=== PATIENT | female | born 1975 | race Hispanic/Latino ===

== ENCOUNTER 2024-10-15 13:04 | Emergency (ER) | payer BC, MEDICAID ==
[~2024-10-15] VITALS: Ht 149.9 cm; Wt 56.7 kg
[2024-10-15 13:27] LABS: HCG,QUALITATIVE URINE NEGATIVE (NEGATIVE)
[2024-10-15 13:29] LABS: IMMATURE GRANULOCYTE ABSOLUTE 0.03 K/uL (0-1); NUCLEATED RED BLOOD CELLS 0.0 % (0.0-0.19); PLATELET COUNT (AUTO) 221 K/uL (130-400); RED BLOOD CELL COUNT(AUTO) 4.67 MIL/uL (4.00-5.50); RED CELL DISTRIBUTION WIDTH 12.1 % (11.0-15.5); WHITE BLOOD COUNT (AUTO) 9.6 K/uL (4.8-10.8)
[2024-10-15 13:30] LABS: APPEARANCE,URINE CLEAR (CLEAR); GLUCOSE, URINE (UA) >=1000 mg/dL (NEGATIVE); LEUKOCYTE ESTERASE ,URINE 75 Leu/uL (NEGATIVE); NITRATE,URINE NEGATIVE (NEGATIVE); NON-SQUAMOUS EPITHELIAL CELL <1 /HPF (0-2); OCCULT BLOOD,URINE NEGATIVE (NEGATIVE); SQUAMOUS EPITHELIAL CELL,UR RARE /HPF (0-2)
[2024-10-15] MEDS: LIDOCAINE HCL 2% VISCOUS 15 ML UDCUP PO ONE (13:36)
[2024-10-15] MEDS: MAG/ALUM/SIMETH 30 ML UDCUP PO ONE (13:36)
[2024-10-15 13:46] LABS: ASPARTATE AMINOTRANSFERASE 10.0 U/L (10-37); CREATININE 0.6 mg/dL (0.5-1.0); GLOMERULAR FILTR. RATE CALC 109.0 mL/min (>90); SODIUM SERUM 134.0 mmol/L (136-145); TOTAL PROTEIN, SERUM 7.4 g/dL (6.0-8.3); UREA NITROGEN, BLOOD 10.0 mg/dL (7-18)
--- NOTE | 2024-10-15 13:49 | EKG ---
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
[2024-10-15 13:50] LABS: GLUCOSE,RANDOM 405.0 mg/dL (70-105)
--- NOTE | 2024-10-15 14:13 | ERN ---
General Chief Complaint: Abdominal Pain Stated Complaint: ABD PAIN/NAUSEA Time Seen by MD: 13:06 Time Seen by Midlevel: 13:06 Source: patient History of Present Illness Initial Comments 49-year-old female who presents to the emergency department due to abdominal pain onset three days. Patient reports nausea after eating but denies any vomiting, diarrhea, fever or further associated symptoms. Patient reports she is a diabetic patient noncompliant does not follow up with PCP and does not take any medications. Allergies: Coded Allergies: morphine (Unverified Allergy, Unknown, 10/15/24) Home Meds Active Scripts Cephalexin (Cephalexin) 500 Mg Tablet, 1 TAB PO BID for 7 Days, #14 TAB 0 Refills Prov:MELISA GRANADOS 10/15/24 Past Medical History Past Medical History: Diabetes-Type II Past Surgical History: Appendectomy, Hysterectomy, None Surgical History Other: UMBILICAL HERNIA, ROS Dictation Constitutional: Negative for fever,chills, and weight loss Eyes: Negative for injury, pain,redness, and discharge ENT: Negative for injury,pain or swelling Cardiovascular: Negative for chest pain, palpitations, and edema Respiratory: Negative for shortness of breath, cough, and wheezing, Abdomen/GI: Positive for abdominal pain, nausea Negative for vomiting, diarrhea, and constipation Back: Negative for injury and pain : Negative for painful urination, bleeding or discharge MS/Extremity: Negative for injury and deformity Skin: Negative for rash, and discoloration Neuro: Negative for headache, weakness, numbness, tingling, and seizure Psych: Negative for suicide ideation, homicidal ideation, and hallucinations Physical Exam Physical Exam Dictation General: awake, alert, no acute distress Head/Face: Normocephalic, atraumatic Eyes: PERRL, EOMI, normal conjunctiva ENT: oral cavity clear, oral mucosa moist Neck: Supple, normal range of motion Cardiovascular: RRR, normal S1/S2 Respiratory: CTAB, no respiratory distress, no rales or wheezes Abdomen: Soft, right upper quadrant and epigastric tenderness, non-distended, no guarding or rebound. Skin: Warm, dry, normal turgor, no rash MS/Extremity: Pulses equal, no cyanosis, neurovascular intact, FROM Neuro: COAx4, GCS 15, strength 5/5, CN 2-12 intact, normal cerebellar exam, normal gait Psych: Normal behavior, mood, and affect normal Results Laboratory and Microbiology Lab and Micro Result Laboratory Tests Test 10/15/24 13:15 10/15/24 13:20 10/15/24 13:22 10/15/24 14:24 Urine Color LIGHT-YELLOW (YELLOW) Urine Appearance CLEAR (CLEAR) Urine pH 7.0 (5.0-8.0) Urine Specific [place] 1.021 (1.001-1.031) Urine Protein 100 mg/dL (NEGATIVE) H Urine Glucose (UA) >=1000 mg/dL (NEGATIVE) H Urine Ketones NEGATIVE mg/dL (NEGATIVE) Urine Occult Blood NEGATIVE (NEGATIVE) Urine Nitrate NEGATIVE (NEGATIVE) Urine Bilirubin NEGATIVE mg/dL (NEGATIVE) Urine Urobilinogen 0.2 mg/dL (0.2-1.0) Urine Leukocyte Esterase 75 Moses/uL (NEGATIVE) H Urine RBC 2-5 /HPF (0-1) H Urine WBC 51-100 /HPF (0-1) H Urine Squamous Epithelial Cells RARE /HPF (0-2) Urine Non-Squamous Epithelial Cells <1 /HPF (0-2) Urine Bacteria Few /HPF (None Seen) Urine Hyaline Casts 2-5 /LPF (0-1 /LPF) H Urine HCG, Qualitative NEGATIVE (NEGATIVE) White Blood Count 9.6 K/uL (4.8-10.8) Red Blood Count 4.67 MIL/uL (4.00-5.50) Hemoglobin 14.6 g/dL (12.0-16.0) Hematocrit 41.7 % (36-48) Mean Corpuscular Volume 89.3 fL (79-99) Mean Corpuscular Hemoglobin 31.3 pg (27.0-33.0) Mean Corpuscular Hemoglobin Concent 35.0 g/dL (32.0-36.0) Red Cell Distribution Width 12.1 % (11.0-15.5) Platelet Count 221 K/uL (130-400) Mean Platelet Volume 10.3 fL (7.5-10.5) Immature Granulocyte % (Auto) 0.3 % (0-1) Neutrophils (%) (Auto) 73.8 % (40.0-77.0) Lymphocytes (%) (Auto) 20.2 % (21.0-51.0) L Monocytes (%) (Auto) 4.5 % (3.0-13.0) Eosinophils (%) (Auto) 0.8 % (0.0-8.0) Basophils (%) (Auto) 0.4 % (0.0-5.0) Neutrophils # (Auto) 7.0 K/uL (1.8-7.7) Lymphocytes # (Auto) 1.9 K/uL (1.0-4.8) Monocytes # (Auto) 0.4 K/uL (0.1-1.0) Eosinophils # (Auto) 0.08 K/uL (0.00-0.70) Basophils # (Auto) 0.04 K/uL (0.00-0.20) Absolute Immature Granulocyte (auto 0.03 K/uL (0-1) Nucleated Red Blood Cells 0.0 % (0.0-0.19) Sodium Level 134 mmol/L (136-145) L Potassium Level 3.7 mmol/L (3.5-5.1) Chloride Level 99 mmol/L (101-111) L Carbon Dioxide Level 31 mmol/L (21-32) Blood Urea Nitrogen 10 mg/dL (7-18) Creatinine 0.6 mg/dL (0.5-1.0) Glomerular Filtration Rate Calc 109 mL/min (>90) Random Glucose 405 mg/dL (70-105) *H Total Calcium 9.2 mg/dL (8.5-10.1) Total Bilirubin 0.8 mg/dL (0.2-1.0) Direct Bilirubin 0.1 mg/dL (0.0-0.3) Aspartate Amino Transf (AST/SGOT) 10 U/L (10-37) Alanine Aminotransferase (ALT/SGPT) 20 U/L (12-78) Alkaline Phosphatase 125 U/L (50-136) Total Protein 7.4 g/dL (6.0-8.3) Albumin 3.3 g/dL (3.5-5.0) L Lipase 166 U/L (16-77) H Troponin I High Sensitivity 7 ng/L (4-50) Whole Blood Ketones Quantitative 0.3 mmol/L (0.0-0.6) Test 10/15/24 15:11 10/15/24 16:19 Whole Blood Glucose 242 MG/DL (70-110) H 98 MG/DL (70-110) # Labs Reviewed?: Yes MDM MDM: Differential diagnosis: Rationale: 49-year-old female who presents to the emergency department due to abdominal pain onset three days. Patient reports nausea after eating but denies any vomiting, diarrhea, fever or further associated symptoms. Patient reports she is a diabetic patient noncompliant does not follow up with PCP and does not take any medications. Labs obtained CBC is nonspecific. Chemistry indicates hyponatremia 134, hypochloremia 99, random glucose of 405, lipase 166. Ketones 0.3, and negative ketones in the urine. No indication of patient being in DKA. IV fluids and insulin were administered repeat glucose was 242. UA indicates a urinary tract infection for which patient received Rocephin in the ED. Patient received GI cocktail and dicyclomine in the ED for abdominal pain. Patient was educated on findings and diagnosis. Admission was offered to the patient, however she refused and stated she wanted to be discharge. Advised to follow up with PCP. Antibiotics prescribed for outpatient treatment. Return to the emergency department for any worsening symptoms. Patient verbalized understanding. Patient stable for discharge. There are no social concerns with this patient. I independently interpreted the test that were performed, results were reviewed by me and considered findings on radiology if ordered. Medical management and examination interpretation discussions were had by me with other qualified healthcare professionals as indicated for the patient's care. ED Course Orders Procedure Category Date Status Time Cbc With Differential LAB 10/15/24 Complete 13:14 Basic Metabolic Panel LAB 10/15/24 Complete 13:14 Lipase LAB 10/15/24 Complete 13:14 Hepatic Function Panel LAB 10/15/24 Complete 13:14 Urinalysis LAB 10/15/24 Complete W/Microscopic 13:14 ,Urine Test LAB 10/15/24 Complete 13:14 Mag/Alum/Simeth 30ml PHA 10/15/24 Complete (Maalox Plus 30ml) 13:30 Lidocaine Hcl 2% PHA 10/15/24 Complete Viscous (Lidocaine Hcl 13:30 Pantoprazole 40mg Tab PHA 10/15/24 Complete (Protonix 40mg Tab 13:30 Us Abdominal Ruq\Ltd US 10/15/24 Resulted 13:22 Troponin I High LAB 10/15/24 Complete Sensitivity 13:22 12 Lead Ekg Tracing- EKG 10/15/24 Complete Technical 13:22 Culture Urine NIYA 10/15/24 Complete 13:43 Ketone Blood LAB 10/15/24 Complete Quantitative 14:02 0.9%Nacl 1000ml (Ns PHA 10/15/24 Complete 1000ml) 14:30 Insulin Regular, PHA 10/15/24 Complete Human 3ml (Humulin R 15:00 Ceftriaxone 1g Vial PHA 10/15/24 Complete (Rocephine 1g Inj) 15:00 Bedside Glucose CPOE 10/15/24 Transmitted Fingerstick 16:14 Dicyclomine Hcl PHA 10/15/24 Complete (Bentyl 20mg Tab) 17:00 Current Medications Medications (Trade) Dose Ordered Sig/[place] Route PRN Reason Start Time Stop Time Status Last Admin Dose Admin Al Hydroxide/Mg Hydroxide (MAALox PLUS 30ML) 30 ml ONCE ONCE PO 10/15/24 13:30 10/15/24 13:31 DC 10/15/24 13:36 Ceftriaxone Sodium (ROCEphine 1G INJ) 1 gm ONCE ONCE IVPB 10/15/24 15:00 10/15/24 15:01 DC 10/15/24 15:15 Dicyclomine HCl (Bentyl 20mg Tab) 20 mg ONCE ONCE PO 10/15/24 17:00 10/15/24 17:01 DC 10/15/24 16:59 Insulin Human Regular (humuLIN R 100 UNIT/ML 3ML) 10 unit ONCE ONCE SQ 10/15/24 15:00 10/15/24 15:01 DC 10/15/24 15:20 Lidocaine HCl (Lidocaine HCl 2% Viscous) 10 ml ONCE ONCE PO 10/15/24 13:30 10/15/24 13:31 DC 10/15/24 13:36 Pantoprazole Sodium (PROTonix 40MG TAB) 40 mg ONCE ONCE PO 10/15/24 13:30 10/15/24 13:31 DC 10/15/24 13:36 Sodium Chloride 1,000 ml @ 0 mls/hr ONCE ONCE IV 10/15/24 14:30 10/15/24 14:31 DC 10/15/24 14:33 Vital Signs Date Time Temp Pulse Resp B/P (MAP) Pulse Ox O2 Delivery O2 Flow Rate FiO2 10/15/24 16:36 98.2 64 16 155/90 98 Room Air* 0 10/15/24 13:30 98.2 60 16 180/82 98 Room Air* 0 10/15/24 13:08 98.6 65 18 183/85 99 0 DX & DISP Disposition: Discharge Departure Impression: Primary Impression: UTI (urinary tract infection) Condition: Stable Scripts Cephalexin (Cephalexin) 500 Mg Tablet 1 TAB PO BID for 7 Days, #14 TAB 0 Refills Prov: MELISA GRANADOS 10/15/24 Additional Instructions: Discharge home. Rest. Follow up with primary care [facility] in 24 hours. Return to the ER for any acute changes or worsening symptoms. If any medications were prescribed take as directed. Okay to continue home medications unless otherwise discussed during your visit in the emergency room today. Patient was also advised to follow-up with primary care physician in 1 to 2 days for continued monitoring. Referrals: CANDY SNOWDEN MD (PCP) I performed the substantive portion of the visit. I have reviewed and personally made and approve the management plan that is documented in the notes by myself or the ASHLY. I acknowledge full responsibility for the patient's management plan. MELISA GRANADOS Oct 15, 2024 14:13 MINOO FARFAN DO Oct 16, 2024 08:23
[2024-10-15] MEDS: 0.9%NACL 1000ML 1,000 ML IV ONE (14:33)
--- NOTE | 2024-10-15 15:18 | HMCIMG ---
EXAM: US Abdomen, Right Upper Quadrant. CLINICAL HISTORY: ruq pain TECHNIQUE: Right upper quadrant sonography performed with image documentation. COMPARISON: Study date - 05/14/15. FINDINGS: LIVER: The liver is enlarged; the right hepatic lobe measures up to 17.3 cm with increased echogenicity suggestive of fatty changes. There is no focal hepatic abnormality or intrahepatic biliary ductal dilatation GALLBLADDER: The gallbladder appears normal. No gallbladder wall thickening seen (measuring approximately 3 mm). No gallstones are evident. COMMON BILE DUCT: No dilation (measuring approximately 3 mm). PANCREAS: The visualized pancreas appears within normal limits. The distal pancreas is obscured by bowel gas. RIGHT KIDNEY: Measuring approximately 10.3 x 4.7 x 4.6 cm Unremarkable. Normal renal contours. No renal mass or calculus. No hydronephrosis. IMPRESSION: 1. Hepatomegaly with increased echogenicity, suggestive of fatty liver. 2. No acute findings in the right upper quadrant. /[place]
[2024-10-15 16:36] VITALS: BP 155/90; PULSE 64; RESP 16; TEMP 98.3; O2SAT 98
[2024-10-15] MEDS ORDERED: CEPH500T PO (16:45)
[2024-10-15] MEDS: DICYCLOMINE HCL 20 MG TAB PO ONE (16:59)
== END 2024-10-15 17:06 | disposition home or self-care (01) ==
LOC: EDH 13:04
DX: N39.0 Urinary tract infection, site not specified (principal); E11.9 Type 2 diabetes mellitus without complications; Z88.5 Allergy status to narcotic agent; Z90.49 Acquired absence of other specified parts of digestive tract; Z90.710 Acquired absence of both cervix and uterus
CPT/HCPCS: 99284; 96374; 76705; 80076; 84484; 80048; 83690; 85025; 87086 ×2; 87186; 82948 ×2; 82010; 81001; 81025; 36415; 93005; 96372; J1815; J7030; J0696